=== PATIENT | male | born 1960 | race Caucasian/White ===

== ENCOUNTER 2016-07-28 10:00 | Outpatient (RCR) ==
[2013-02-05 05:18] VITALS: BMI 16.7
--- NOTE | 2016-07-15 13:03 | RS.OPPTEV2 ---
Date of Note: 07/15/16 Visit #: 1 Date of Evaluation: 07/15/16 Payer Source: MEDICARE Date of Onset/Injury/Change in Status: 12/31/15 Surgery Performed?: No Treatment Diagnosis: Low back and leg pain History of Condition/Mechanism of Injury:: Back pain and BLE pain R>L for ~ 6 wks. Pain is the majority of the time but intensity varies. Prior Level of Function.....Patient was independent with: ADL's, Self Care, Work /Vocation, Caregiving, Ambulation/Mobility, Community Integration/Access Functional Limitations: Self Care, ADL's, Reaching, Pushing, Pulling, Lifting, Carrying, Sitting, Standing, Bending, Squatting, Ambulation, Community Access/ Integration Treatment Side (optional): Bilateral Medical History Medical History: Arthritis, Other Medical History Comments:: HIV Surgical History: Other Surgical History Comments:: 2 stent one in each leg, hernia repair Smoking Status: Former smoker Hx Home Medications: hydrocodone prm Pain Assessment - Pain Description Pain Location: back and BLE. RiLE into calf and LLE above the knee. Pain Description: Crushing Current Pain Intensity: 4-5/10 Worst Pain Intensity: 9-10/10 Functional Outcome Measure Oswestry LBP: 24 (50% disability) - G Codes & Severity Modifier G Codes & Modifier: Carrying, Moving & Handling Objects. Eval - CK. Goal - CJ Source of G Code score: Oswestry LBP Scale Observation - Observation Inspection: Patient is very thin with no signs of scoliosis visible. Gait - Gait Pattern General Gait Pattern Observation: No Deviations/Normal General Range of Motion: Right hamstring length -55 degrees, left -35 degrees Muscle Strength: RLE strength is 4+/5 and LLE 4/5 with pain in the lower back with all testing. - ROM Lumbar Flexion: Hand reach to Mid-Thighs Sidebending to Left: Reach to Lateral Joint Line Sidebending to Right: Reach to Lateral Joint Line Lumbar Spine ROM Limitations: Pain - Strength Trunk Rotation: 3+ Fair+ - Special Tests SLR Test: Positive Right Seated Dural Stretch Test: Positive Right SI Joint Compression: Negative Comments: Patient had relief of pain with manual traction and SI joint comopression. Palpation Palpation Findings: None/Normal Sensation - Sensation Sensation Description: [place] (Bilateral feet) Interventions - Exercise/Activities/Manual Therapy Exercises/Activities: Pt was assisted with LTR, KTC and hamstring stretching which was poorly tolerated due to neurotension signs. Manual Therapy: NA - Charges Total Direct Minutes: 15 Total Treatment Time: 60 Procedures billed for this date of service:: PT Eval (Medium) ther ex Assessment Assessment: Severe LBP and BLE pain with decreased lumbar ROM, decrease core strength and decreased hamstring length. Patient Education: Education of diagnosis, Body/Joint mechanics, Activity Modification, Education of Plan of Care Rehab Potential: Good Short Term Goals Goal #1: Patient is independent in basic HEP. Goal to be met by: 07/25/16 Goal #2: Eliminate pain below the right knee. Goal to be met by: 07/25/16 Goal #3: Pain rating 4-5/10 at worst. Goal to be met by: 07/25/16 Goal #4: Bilateral hamstring stretches are tolerated w/o increased LBP. Goal to be met by: 07/25/16 Halfway Goals Goal #1: Eliminate radicular pain in BLEs. Goal to be met by: 08/08/16 Goal #2: Lumbar ROM WFLs w/o increased pain. Goal to be met by: 08/08/16 Goal #3: Oswestry LBP Score 15/50 Goal to be met by: 08/08/16 Goal #4: Independent with proper body mechanics to maintain DC status Goal to be met by: 08/08/16 Plan - Treatment to be Provided Procedures: Therapeutic Exercises, Therapeutic Activity, Manual Therapy, Patient Education Modalities: Electrical Stimulation, Ultrasound/Phonophoresis, Class IV Laser, Cryotherapy, Hot Packs, Mechanical Traction - Treatment Plan Frequency: 3 X week Duration: 4 weeks ORDER # VISITS AND/OR THROUGH DATE: 08/08/2016 - Treatment Code (1) Lumbar radiculitis Comments: M54.16
--- NOTE | 2016-07-18 16:16 | RS.OPPTDN ---
Subjective Date of Note: 07/18/16 Visit #: 2 Date of Evaluation: 07/15/16 Payer Source: MEDICARE Treatment Diagnosis: Low back and leg pain Current Subjective/complaints:: Patient says he is having some soreness to the mid back. States he did not have this before. He is motivated to decrease his back pain in any way as he is trying to get outside yard/garden work initiated. Pain Assessment - Pain Description Pain Location: back and BLE. RiLE into calf and LLE above the knee. Pain Description: Crushing Current Pain Intensity: 4-5/10 - Treatment Modality: Ultrasound Parameters/Method Applied: continuous @ 1.5 w/cm2 x 10 mins bilateral lumbar paraspinals Patient Position: Left Sidelying - Heat/Cryotherapy Treatment: Hot Pack Interventions - Exercise/Activities/Manual Therapy Exercises/Activities: Patient receives passive stretching (gently) for SKTC, HS , and LTR bilaterally. He begins pillow squeezes 2x10. Began education of diagnosis, postural mechanics, and explanation of therex/modality performed today. Total minutes of Exercise: 13 Manual Therapy: NA - Charges Total Direct Minutes: 23 Total Treatment Time: 38 Procedures billed for this date of service:: hp, u/s, ex Assessment: Patient presented with moderate LBP with soreness described at the mid back following evaluation. After session today, he expressed improved back pain and eager to receive further therapy to reduce LBP. Gentle exercise ignacio fairly well. This should improve with consistent treatment. Patient Education: Education of diagnosis, Body/Joint mechanics, Home Exercise Program, Home Safety, Activity Modification, Education of Plan of Care Short Term Goals Goal #1: Patient is independent in basic HEP. Goal to be met by: 07/25/16 Goal #2: Eliminate pain below the right knee. Goal to be met by: 07/25/16 Goal #3: Pain rating 4-5/10 at worst. Goal to be met by: 07/25/16 Goal #4: Bilateral hamstring stretches are tolerated w/o increased LBP. Goal to be met by: 07/25/16 Half-Way Goals Goal #1: Eliminate radicular pain in BLEs. Goal to be met by: 08/08/16 Goal #2: Lumbar ROM WFLs w/o increased pain. Goal to be met by: 08/08/16 Goal #3: Oswestry LBP Score 15/50 Goal to be met by: 08/08/16 Goal #4: Independent with proper body mechanics to maintain DC status Goal to be met by: 08/08/16 Plan PLAN OF CARE EXPIRES ON:: 08/08/16 ORDER # VISITS AND/OR THROUGH DATE: 08/08/2016 PLAN: Continue Plan of Care
--- NOTE | 2016-07-21 13:53 | RS.OPPTDN ---
Subjective Date of Note: 07/21/16 Visit #: 3 Date of Evaluation: 07/15/16 Payer Source: MEDICARE Treatment Diagnosis: Low back and leg pain Current Subjective/complaints:: Patient says treatment helped temporarily, but then started hurting more a day later. He says heat always helps and relies on that and pain meds daily. Pain Assessment - Pain Description Pain Location: back and BLE. RiLE into calf and LLE above the knee. Pain Description: Crushing Current Pain Intensity: 4-5/10 - Treatment Modality: Ultrasound Parameters/Method Applied: continuous @ 1.5 w/cm2 x 12 mins to bilateral lumbar paraspinals Patient Position: Left Sidelying - Heat/Cryotherapy Treatment: Hot Pack (R LB and SI in sidelying x 15 mins) Interventions - Exercise/Activities/Manual Therapy Exercises/Activities: Patient receives passive stretching (gently) for SKTC, HS , and LTR bilaterally. He continues with pillow squeezes 2x10. Isometric hip abd in hooklying x 10. Attempted isometric hip flexion and patient began to have coccyx pain. Total minutes of Exercise: 13 Manual Therapy: NA - Charges Total Direct Minutes: 25 Total Treatment Time: 40 Procedures billed for this date of service:: hp, u/s, ex Assessment: Patient has temporary relief so far with modalities. He has some difficulty ignacio gentle stretches due to small frame and bony prominences coming in contact with bed. May further continue therex as able. Patient Education: Education of diagnosis, Body/Joint mechanics, Home Exercise Program, Home Safety, Activity Modification, Education of Plan of Care Short Term Goals Goal #1: Patient is independent in basic HEP. Goal to be met by: 07/25/16 Goal #2: Eliminate pain below the right knee. Goal to be met by: 07/25/16 Goal #3: Pain rating 4-5/10 at worst. Goal to be met by: 07/25/16 Goal #4: Bilateral hamstring stretches are tolerated w/o increased LBP. Goal to be met by: 07/25/16 Senior Care Goals Goal #1: Eliminate radicular pain in BLEs. Goal to be met by: 08/08/16 Goal #2: Lumbar ROM WFLs w/o increased pain. Goal to be met by: 08/08/16 Goal #3: Oswestry LBP Score 15/50 Goal to be met by: 08/08/16 Goal #4: Independent with proper body mechanics to maintain DC status Goal to be met by: 08/08/16 Plan PLAN OF CARE EXPIRES ON:: 08/08/16 ORDER # VISITS AND/OR THROUGH DATE: 08/08/2016 PLAN: Continue Plan of Care
--- NOTE | 2016-07-23 15:16 | RS.OPPTDN ---
Subjective Date of Note: 07/23/16 Visit #: 4 Date of Evaluation: 07/15/16 Payer Source: MEDICARE Treatment Diagnosis: Low back and leg pain Current Subjective/complaints:: Patient says therapy is helping his back pain. He says he has soreness with changing positions in bed. Pain Assessment - Pain Description Pain Location: back and BLE. RiLE into calf and LLE above the knee. Pain Description: Crushing Current Pain Intensity: 3-4/10 - Treatment Modality: Ultrasound Parameters/Method Applied: continuous @ 1.5 w/cm2 x 12 mins to bilateral lumbar paraspinals (R more than L) Patient Position: Left Sidelying - Heat/Cryotherapy Treatment: Hot Pack (bilateral low back and R SI in sidelying x 20 mins) Interventions - Exercise/Activities/Manual Therapy Exercises/Activities: Patient receives passive stretching (gently) for SKTC, HS , and LTR bilaterally. He continues with pillow squeezes 2x10. Isometric hip abd in hooklying x 10. Alternate LE lift in hooklying x 10. Total minutes of Exercise: 15 Manual Therapy: NA - Charges Total Direct Minutes: 27 Total Treatment Time: 47 Procedures billed for this date of service:: hp, u/s, ex Assessment: Patient responding to treatment slowly as he verbalizes less pain. Still has difficulty ignacio progressed trunk stability. Patient Education: Education of diagnosis, Body/Joint mechanics, Home Exercise Program, Home Safety, Activity Modification, Education of Plan of Care Patient demonstrates compliance with HEP?: Yes Short Term Goals Goal #1: Patient is independent in basic HEP. Goal to be met by: 07/25/16 Goal #2: Eliminate pain below the right knee. Goal to be met by: 07/25/16 Goal #3: Pain rating 4-5/10 at worst. Goal to be met by: 07/25/16 Goal #4: Bilateral hamstring stretches are tolerated w/o increased LBP. Goal to be met by: 07/25/16 Senior Care Goals Goal #1: Eliminate radicular pain in BLEs. Goal to be met by: 08/08/16 Goal #2: Lumbar ROM WFLs w/o increased pain. Goal to be met by: 08/08/16 Goal #3: Oswestry LBP Score 15/50 Goal to be met by: 08/08/16 Goal #4: Independent with proper body mechanics to maintain DC status Goal to be met by: 08/08/16 Plan PLAN OF CARE EXPIRES ON:: 08/08/16 ORDER # VISITS AND/OR THROUGH DATE: 08/08/2016 PLAN: Continue Plan of Care
--- NOTE | 2016-07-28 12:03 | RS.OPPTDN ---
Subjective Date of Note: 07/28/16 Visit #: 5 Date of Evaluation: 07/15/16 Payer Source: MEDICARE Treatment Diagnosis: Low back and leg pain Current Subjective/complaints:: Patient c/o not feeling good this morning. Says his stomach is upset, but wishes to continue because his back is hurting. Pain Assessment - Pain Description Pain Location: back and BLE. RiLE into calf and LLE above the knee. Pain Description: Crushing Current Pain Intensity: does not rate, generally not feeling well. - Treatment Modality: Ultrasound Parameters/Method Applied: continuous @ 1.5 w/cm2 x 10 mins to bilateral lumbar paraspinals Patient Position: Left Sidelying - Heat/Cryotherapy Treatment: Hot Pack (20 mins over the R low back and hip sidelying) Interventions - Exercise/Activities/Manual Therapy Exercises/Activities: Patient performs trunk stability and avoided stretching today due to c/o stomach upset. He performs pillow squeezes, isometric hip flexion/abd, pelvic tilts and SLR (x 5). All others 2/10. Total minutes of Exercise: 16 Manual Therapy: NA - Charges Total Direct Minutes: 26 Total Treatment Time: 46 Procedures billed for this date of service:: hp, u/s, ex Assessment: Patient not feeling well today. Abbreviated session and avoided stretching. Patient Education: Education of diagnosis, Body/Joint mechanics, Home Exercise Program, Home Safety, Activity Modification, Education of Plan of Care Short Term Goals Goal #1: Patient is independent in basic HEP. Goal to be met by: 07/25/16 Goal #2: Eliminate pain below the right knee. Goal to be met by: 07/25/16 Goal #3: Pain rating 4-5/10 at worst. Goal to be met by: 07/25/16 Goal #4: Bilateral hamstring stretches are tolerated w/o increased LBP. Goal to be met by: 07/25/16 Snf Goals Goal #1: Eliminate radicular pain in BLEs. Goal to be met by: 08/08/16 Goal #2: Lumbar ROM WFLs w/o increased pain. Goal to be met by: 08/08/16 Goal #3: Oswestry LBP Score 15/50 Goal to be met by: 08/08/16 Goal #4: Independent with proper body mechanics to maintain DC status Goal to be met by: 08/08/16 Plan PLAN OF CARE EXPIRES ON:: 08/08/16 ORDER # VISITS AND/OR THROUGH DATE: 08/08/2016 PLAN: Progress Exercises
== END 2016-07-29 ==
PROVIDERS: ATTEND Internal Medicine Infectious Disease
DX: M54.5 Low back pain (principal)

== ENCOUNTER 2016-08-08 10:00 | Outpatient (RCR) ==
[2013-02-05 05:18] VITALS: BMI 16.7
--- NOTE | 2016-07-30 10:33 | RS.OPPTDN ---
Subjective Date of Note: 07/30/16 Visit #: 6 Date of Evaluation: 07/15/16 Payer Source: MEDICARE Treatment Diagnosis: Low back and leg pain Current Subjective/complaints:: Patient says his back pain has been better. Reports exercises are easier to ignacio, but stretching sometimes bothers him ( piriformis). Pain Assessment - Pain Description Pain Location: back and BLE. RiLE into calf and LLE above the knee. Current Pain Intensity: Feeling better, improvement from last session. - Treatment Modality: Ultrasound Parameters/Method Applied: 1.5 w/cm2 x 10 mins to R lumbar paraspinals/SI Patient Position: Left Sidelying - Heat/Cryotherapy Treatment: Hot Pack ( over the R LB and SI in sidelying x 20 mins) Interventions - Exercise/Activities/Manual Therapy Exercises/Activities: Patient restarts stretching (passively) of SKTC, Piriformis, Fig 4, Trunk rotation, and HS bilaterally. He performs trunk stability of: pillow squeezes, isometric hip flexion/abd, pelvic tilts, bridging and SLR (x 5). All others /10. Total minutes of Exercise: 17 Manual Therapy: NA - Charges Total Direct Minutes: 27 Total Treatment Time: 47 Procedures billed for this date of service:: hp, u/s, ex Assessment: Patient experiencing back pain reduction this date. Patient ignacio all therex well with only slight soreness with R piriformis stretching. Patient Education: Education of diagnosis, Body/Joint mechanics, Home Exercise Program, Home Safety, Activity Modification, Education of Plan of Care Patient demonstrates compliance with HEP?: Yes Short Term Goals Goal #1: Patient is independent in basic HEP. Goal to be met by: 07/25/16 Progress towards Goal:: Progressing Goal #2: Eliminate pain below the right knee. Goal to be met by: 07/25/16 Goal #3: Pain rating 4-5/10 at worst. Goal to be met by: 07/25/16 Goal #4: Bilateral hamstring stretches are tolerated w/o increased LBP. Goal to be met by: 07/25/16 Agency Operator Goals Goal #1: Eliminate radicular pain in BLEs. Goal to be met by: 08/08/16 Goal #2: Lumbar ROM WFLs w/o increased pain. Goal to be met by: 08/08/16 Goal #3: Oswestry LBP Score 15/50 Goal to be met by: 08/08/16 Goal #4: Independent with proper body mechanics to maintain DC status Goal to be met by: 08/08/16 Plan PLAN OF CARE EXPIRES ON:: 08/08/16 ORDER # VISITS AND/OR THROUGH DATE: 08/08/2016 PLAN: Progress Exercises
--- NOTE | 2016-08-01 09:53 | RS.OPPTDN ---
Subjective Date of Note: 08/01/16 Visit #: 7 Date of Evaluation: 07/15/16 Payer Source: MEDICARE Treatment Diagnosis: Low back and leg pain Current Subjective/complaints:: Patient says he lifted a flower pot last night and felt a pull in his back. Rates pain /. Pain Assessment - Pain Description Pain Location: both sides of back today related to picking up heavy flower pot Current Pain Intensity: elevated today 01/08 - Treatment Modality: Ultrasound Parameters/Method Applied: continuous 1.5 w/cm2 x12 mins to B lumbar paraspinals in sidelying Patient Position: Prone Comments: and L sidelying - Heat/Cryotherapy Treatment: Hot Pack ( low back and in sidelying x 20 mins) Interventions - Exercise/Activities/Manual Therapy Exercises/Activities: Patient restarts stretching (passively and gently) of SKTC , Piriformis, Fig 4, Trunk rotation, and HS bilaterally. He performs trunk stability of: pillow squeezes only due to flare up of pain. Provided Biofreeze for the weekend. Total minutes of Exercise: 10 Manual Therapy: NA - Charges Total Direct Minutes: 22 Total Treatment Time: 42 Procedures billed for this date of service:: hp, u/s, ex Assessment: Patient has elevated pain since last night related to picking up flower pot. Only light stretching performed. He remains tender to u/s head bilaterally. Limited R ER/HS with stretching. Patient Education: Education of diagnosis, Body/Joint mechanics, Home Exercise Program, Home Safety, Activity Modification, Education of Plan of Care Short Term Goals Goal #1: Patient is independent in basic HEP. Goal to be met by: 07/25/16 Progress towards Goal:: Progressing Goal #2: Eliminate pain below the right knee. Goal to be met by: 07/25/16 Progress towards Goal:: Progressing Goal #3: Pain rating 4-5/10 at worst. Goal to be met by: 07/25/16 Goal #4: Bilateral hamstring stretches are tolerated w/o increased LBP. Goal to be met by: 07/25/16 Progress towards Goal:: Progressing Underground Conduit Installer Goals Goal #1: Eliminate radicular pain in BLEs. Goal to be met by: 08/08/16 Goal #2: Lumbar ROM WFLs w/o increased pain. Goal to be met by: 08/08/16 Goal #3: Oswestry LBP Score 15/50 Goal to be met by: 08/08/16 Goal #4: Independent with proper body mechanics to maintain DC status Goal to be met by: 08/08/16 Plan PLAN OF CARE EXPIRES ON:: 08/08/16 ORDER # VISITS AND/OR THROUGH DATE: 08/08/2016 PLAN: Continue Plan of Care
--- NOTE | 2016-08-04 11:39 | RS.OPPTDN ---
Subjective Date of Note: 08/04/16 Visit #: 8 Date of Evaluation: 07/15/16 Payer Source: MEDICARE Treatment Diagnosis: Low back and leg pain Current Subjective/complaints:: Patient says that his pain has gotten better since last week. He says he is now at his "normal" pain level. Rates 11/08. Says pain is still going into both legs without change. Pain Assessment - Pain Description Pain Location: R hip Current Pain Intensity: decreased today to 11/08 - Treatment Modality: Ultrasound Parameters/Method Applied: continuous @ 1.5 w/cm2 x 10 mins bilateral lumbar paraspinals and into the R SI Patient Position: Left Sidelying - Heat/Cryotherapy Treatment: Hot Pack (over the low back and R SI in sidelying x 20) Interventions - Exercise/Activities/Manual Therapy Exercises/Activities: Patient receives gentle passive stretching of SKTC, HS, Piriformis, short range lower trunk rotation. Bilaterally x 3. He performs: pillow squeezes, isometric hip abd in hooklying. Total minutes of Exercise: 15 Manual Therapy: NA - Charges Total Direct Minutes: 25 Total Treatment Time: 45 Procedures billed for this date of service:: hp, u/s, ex Assessment: Patient presents with less pain today compared to last week, but continues with mod pain to the R hip and bilateral LE pain. Patient Education: Education of diagnosis, Body/Joint mechanics, Home Exercise Program, Home Safety, Activity Modification, Education of Plan of Care Patient demonstrates compliance with HEP?: Yes Short Term Goals Goal #1: Patient is independent in basic HEP. Goal to be met by: 07/25/16 Progress towards Goal:: Progressing Goal #2: Eliminate pain below the right knee. Goal to be met by: 07/25/16 Progress towards Goal:: Progressing Goal #3: Pain rating 4-5/10 at worst. Goal to be met by: 07/25/16 Goal #4: Bilateral hamstring stretches are tolerated w/o increased LBP. Goal to be met by: 07/25/16 Progress towards Goal:: Progressing Horse Rancher Goals Goal #1: Eliminate radicular pain in BLEs. Goal to be met by: 08/08/16 Progress towards goal: No Change Goal #2: Lumbar ROM WFLs w/o increased pain. Goal to be met by: 08/08/16 Goal #3: Oswestry LBP Score 15/50 Goal to be met by: 08/08/16 Goal #4: Independent with proper body mechanics to maintain DC status Goal to be met by: 08/08/16 Plan PLAN OF CARE EXPIRES ON:: 08/08/16 ORDER # VISITS AND/OR THROUGH DATE: 08/08/2016 PLAN: Continue Plan of Care
--- NOTE | 2016-08-06 11:39 | RS.OPPTDN ---
Subjective Date of Note: 08/06/16 Visit #: 9 Date of Evaluation: 07/15/16 Payer Source: MEDICARE Treatment Diagnosis: Low back and leg pain Current Subjective/complaints:: Patient says he is hurting worse today. He says he hurts all over. He says he has to clean up his yard today and will have help, but still dreads it. Pain Assessment - Pain Description Pain Location: both sides of the low back and R hip Current Pain Intensity: elevated today, "hurting everywhere" - Treatment Modality: Ultrasound Parameters/Method Applied: 1.5 w/cm2 continuous @ 3.3 mHz x 12 mins to bilateral lumbar paraspinals, more concentration at the R side Patient Position: Left Sidelying - Heat/Cryotherapy Treatment: Hot Pack (15 mins to the R low back and SI in sidelying) Interventions - Exercise/Activities/Manual Therapy Exercises/Activities: Patient receives gentle passive stretching of SKTC, HS, Piriformis, short range lower trunk rotation. Bilaterally x 3. No further therex due to patient's increased reports of pain. Total minutes of Exercise: 10 Manual Therapy: NA - Charges Total Direct Minutes: 22 Total Treatment Time: 37 Procedures billed for this date of service:: hp, u/s, ex Assessment: Patient's pain elevated today to both sides of his back and hips. He has been having mild, temporary relief. He was unable to ignacio gentle stretching to the R LE. Patient Education: Education of diagnosis, Body/Joint mechanics, Home Exercise Program, Home Safety, Activity Modification, Education of Plan of Care Patient demonstrates compliance with HEP?: Yes Short Term Goals Goal #1: Patient is independent in basic HEP. Goal to be met by: 07/25/16 Progress towards Goal:: Progressing Goal #2: Eliminate pain below the right knee. Goal to be met by: 07/25/16 Progress towards Goal:: No Change Goal #3: Pain rating 4-5/10 at worst. Goal to be met by: 07/25/16 Progress towards Goal:: Regressing Goal #4: Bilateral hamstring stretches are tolerated w/o increased LBP. Goal to be met by: 07/25/16 Progress towards Goal:: Progressing Hand Salter Goals Goal #1: Eliminate radicular pain in BLEs. Goal to be met by: 08/08/16 Progress towards goal: No Change Goal #2: Lumbar ROM WFLs w/o increased pain. Goal to be met by: 08/08/16 Progress towards goal: No Change Goal #3: Oswestry LBP Score 15/50 Goal to be met by: 08/08/16 Progress towards goal: No Change Goal #4: Independent with proper body mechanics to maintain DC status Goal to be met by: 08/08/16 Plan PLAN OF CARE EXPIRES ON:: 08/08/16 ORDER # VISITS AND/OR THROUGH DATE: 08/08/2016 PLAN: Plan for Discharge (Patient has one session remaining. Progress therex as able and advance HEP.) Comments:: Continue last session, then discharge
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
--- NOTE | 2016-08-12 11:37 | RS.OPPTDC ---
Date of Discharge: 08/08/16 Date of Evaluation: 07/15/16 Number of Visits: 10 Treatment Diagnosis: Low back and leg pain Current Complaints/Gains: Pt reports he is not benefiting from PT. His pain continues to be mod-severe in nature and radiating into the BLEs as on initial evaluation. Pain Assessment - Pain Description Pain Location: both sides of the low back and R hip Current Pain Intensity: elevated today, "hurting everywhere" Functional Outcome Measure Oswestry LBP: 24 - G Codes & Severity Modifier G Codes & Modifier: Carry & maintaining body position: Goal: CJ. D/C Status: CK Source of G Code score: Oswestry LBP scale Interventions - Exercise/Activities/Manual Therapy Exercises/Activities: na Manual Therapy: NA - Charges Total Direct Minutes: na Total Treatment Time: na Procedures billed for this date of service:: na Assessment Assessment: Patient continues to have pain unchanged by PT intervention. Short Term Goals Goal #1: Patient is independent in basic HEP. Goal to be met by: 07/25/16 Progress towards Goal:: Progressing Goal #2: Eliminate pain below the right knee. Goal to be met by: 07/25/16 Progress towards Goal:: No Change Goal #3: Pain rating 4-5/10 at worst. Goal to be met by: 07/25/16 Progress towards Goal:: Regressing Goal #4: Bilateral hamstring stretches are tolerated w/o increased LBP. 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 Goal to be met by: 08/08/16 Progress towards goal: No Change Goal #2: Lumbar ROM WFLs w/o increased pain. Goal to be met by: 08/08/16 Progress towards goal: No Change Goal #3: Oswestry LBP Score 15/50 Goal to be met by: 08/08/16 Progress towards goal: No Change Goal #4: Independent with proper body mechanics to maintain DC status Goal to be met by: 08/08/16 Plan Reason for Discharge:: Lack of Progress
== END 2016-08-29 ==
PROVIDERS: ATTEND Internal Medicine Infectious Disease
DX: M54.5 Low back pain (principal)

== ENCOUNTER 2017-06-09 11:37 | Emergency (ER) ==
[2017-06-09 11:40] VITALS: BP 146/74; TEMP 99.3; BMI 17.0
--- NOTE | 2017-06-09 12:29 | ED.PDOC ---
General ED Provider: Dr. BEKAH AHUJA Chief Complaint: Chest Pain Stated Complaint: Sudden onset lt sided chest pain Lt Posterior >Anterior; Denies Dyspnea, nausea or vomiting Time Seen by Physician: 12:30 Mode of Arrival: Walk-In Information Source: Patient Primary Care Provider: CARMENCITA FLOOD Nursing and Triage Documentation Reviewed and Agree: Yes Reviewed sepsis parameters & appropriate labs ordered?: Yes System Inflammatory Response Syndrome: Not Applicable Sepsis Protocol: For patient's 13 years and over: Temp is 96.8 and below OR 101 and greater Pulse >90 BPM Resp >20/minute Acutely Altered Mental Status Are patient's symptoms suggestive of a new infection, such as: -Pneumonia -Skin, Soft Tissue -Endocarditis -UTI -Bone, Joint Infection -Implantable Device -Acute Abdominal Infection -Wound Infection -Meningitis -Blood Stream Catheter Infection -Unknown System Inflammatory Response Syndrome: Not Applicable Cardiovascular Complaint Exam - Chest Pain Complaint/Exam Onset: Sudden Duration: 2 hrs Symptoms Are: Still present Timing: Constant Initial Severity: Moderate Current Severity: Moderate Location: Reports: Left anterior, Other (Lt Posterior) Pain Radiates: Reports: Back, Left shoulder Character: Reports: Sharp, Stabbing Aggravating: Reports: Movement Alleviating: Reports: Rest Associated Signs and Symptoms: Denies: Diaphoresis, Nausea, Vomiting, Fever, Palpitations, Hemoptysis, Back pain, Abdominal pain, Calf pain, Calf swelling Related History: Denies: Similar episode Review of Systems - Review Of Systems Constitutional: Reports: No symptoms Eyes: Reports: No symptoms Ears, Nose, Mouth, Throat: Reports: No symptoms Respiratory: Reports: No symptoms Cardiac: Reports: Chest pain. Denies: Lightheadedness, Palpitations, Syncope GI: Reports: No symptoms : Reports: No symptoms Musculoskeletal: Reports: Back pain, Muscle stiffness Skin: Reports: No symptoms Neurological: Reports: No symptoms Endocrine: Reports: No symptoms Hematologic/Lymphatic: Reports: Other (Pos HIV ) All Other Systems: Reviewed and Negative Past Medical History - Past Medical History Previously Healthy: No Endocrine: Reports: None Cardiovascular: Reports: None Respiratory: Reports: COPD Hematological: Reports: HIV Gastrointestinal: Reports: None Genitourinary: Reports: None Neuro/Psych: Reports: None Musculoskeletal: Reports: None Cancer: Reports: None - Surgical History General Surgical History: Reports: None - Family History Family History: Reports: None - Social History Smoking Status: Former smoker Hx Substance Use: Yes (MARIJUANA) Alcohol Screening: None Lives: With family Physical Exam - Physical Exam Appearance: Thin Ill-appearing: Mild Pain Distress: Mild (Lt upper periscapular region) Eyes: DESI, EOMI, Conjunctiva clear, Right pupil size ENT: Ears normal, Nose normal, Oropharynx normal Neck: Nonsupple Respiratory: Airway patent, Breath sounds clear, Breath sounds equal Cardiovascular: RRR, Pulses normal, No rub, No murmur GI/: Soft, Nontender, No masses, Bowel sounds normal Musculoskeletal: Normal strength, ROM intact, No edema, No calf tenderness Skin: Warm, Dry, Normal color Neurological: Sensation intact, Motor intact, Reflexes intact, Cranial nerves intact, Alert, Oriented Psychiatric: Affect appropriate Critical Care Note - Critical Care Note Total Time (mins): 0 Course - Course Hematology/Chemistry: 06/09/17 12:40 06/09/17 12:40 Orders, Labs, Meds: Lab Review 06/09/17 06/09/17 12:40 12:40 WBC 5.70 RBC 4.15 L Hgb 13.9 L Hct 39.2 L MCV 94.5 H MCH 33.5 H MCHC 35.5 H RDW Coeff of Genevieve 12.0 Plt Count 149 Immature Gran % (Auto) 0.4 Neut % (Auto) 61.8 Lymph % (Auto) 29.6 Gibson % (Auto) 6.1 Eos % (Auto) 1.4 Baso % (Auto) 0.7 Immature Gran # (Auto) 0.0 Neut # 3.5 Lymph # 1.7 Gibson # 0.4 Eos # 0.1 Baso # 0.0 Sodium 141 Potassium 3.9 Chloride 105 Carbon Dioxide 27 Anion Gap 12.9 BUN 10 Creatinine 1.14 H Estimated GFR (MDRD) 66.00 BUN/Creatinine Ratio 8.77 Glucose 133 H Calcium 9.3 Total Bilirubin 0.3 AST 16 ALT 19 Alkaline Phosphatase 46 L Total Creatine Kinase 53 Troponin I < 0.0100 Total Protein 7.1 Albumin 3.9 Globulin 3.2 Albumin/Globulin Ratio 1.22 Orders Category Date Time Status EKG-(ED ONLY) Stat CARDIO 06/09/17 12:19 Completed CBC W/ AUTO DIFF Stat LAB 06/09/17 12:40 Completed COMPREHENSIVE METABOLIC PANEL Stat LAB 06/09/17 12:40 Completed CREATINE KINASE Stat LAB 06/09/17 12:40 Completed TROPONIN I Stat LAB 06/09/17 12:40 Completed Ketorolac Tromethamine [Toradol] MEDS 06/09/17 13:25 Discontinued 15 mg IVP ONCE STA Lorazepam Inj [Ativan] MEDS 06/09/17 13:26 Discontinued 0.5 mg IVP ONCE STA CHEST, 1V AP ONLY Stat RADS 06/09/17 12:28 Completed Medications Discontinued Medications Generic Name Dose Route Start Last Admin Trade Name Farhana PRN Reason Stop Dose Admin Ketorolac Tromethamine 15 mg 06/09/17 13:25 06/09/17 13:40 Toradol IVP 06/09/17 13:26 15 mg ONCE STA Administration Lorazepam 0.5 mg 06/09/17 13:26 06/09/17 13:41 Ativan IVP 06/09/17 13:27 0.5 mg ONCE STA Administration Vital Signs: Temp Pulse Resp BP Pulse Ox 06/09/17 11:37 99.3 F 90 24 146/74 H 100 WALKER Risk Score WALKER Risk Score: Risk Score Odds of by 30D 0 0.1 (0.1-0.2) 1 0.3 (0.2-0.3) 2 0.4 (0.3-0.5) 3 0.7 (0.6-0.9) 4 1.2 (1.0-1.5) 5 2.2 (1.9-2.6) 6 3.0 (2.5-3.6) 7 4.8 (3.8-6.1) Departure - Departure Time of Disposition: 16:30 Disposition: HOME SELF-CARE Discharge Problem: Acute chest wall pain, Somatic dysfunction of thoracic region, Lesion of right lung Discharge Problem: (Ruled Out): Lesion of left lung Instructions: Thoracic Pain (ED) Condition: Good Pt referred to PMD for follow-up: Yes Additional Instructions: Follow up with PCP for further evaluation of Rt sided lung lesion identified on Chest Xray including obtaing a CT Scan of the chest\ Avoid strenuous activities Take analgesics for pain as needed Apply ice pack alternating with warm moist heat to area of discomfort for 20 min 3 times daily Allergies/Adverse Reactions: Allergies clarithromycin [From Biaxin] Adverse Reaction (Verified 06/09/17 11:40) Home Medications: Ambulatory Orders Acetaminophen [Tylenol] 500 mg PO Q4-6H PRN 02/05/13 Aspirin [Aspirin EC] 81 mg PO DAILY 02/05/13 Atorvastatin Calcium [Lipitor] 10 mg PO BEDTIME 02/05/13 Hydrocodone Bit/Acetaminophen [Lortab 10-500] 1 tab PO TID PRN 02/05/13 Dolutegravir Sodium [Tivicay] 50 mg PO DAILY 06/09/17 Emtricitabine/Tenofov Alafenam [Descovy 200-25 mg Tablet] 1 each PO DAILY Disposition Discussed With: Patient, Family Additional Comments Additional Comments: Area of upper lt thoracic spinal region with focal paraspinous mm tenderness and spasm/pos trigger point = allevaited with Counterstrain Myofacial therapy /OMM
--- NOTE | 2017-06-09 12:58 | DI ---
EXAM: Single view of the chest. History: Chest pain. Comparison: Chest radiograph 02/05/2013 Findings: Heart size is within normal limits. Calcified granulomas seen within the thorax. Biapical lung scarring again noted. 1.4 cm spiculated nodule within the right lung apex. No pleural fluid an d no pneumothorax. No consolidated pneumonia. Impression: Spiculated nodule in the right lung apex. Recommend further evaluation with contrast en hanced chest CT.
[2017-06-09] MEDS ORDERED: TORADOL IVP STA (13:25)
[2017-06-09] MEDS ORDERED: ATIVAN IVP STA (13:26)
== END 2017-06-09 16:49 | disposition home or self-care (01) ==
LOC: ED 11:37
DX: R07.89 Other chest pain (principal); R91.1 Solitary pulmonary nodule; M99.02 Segmental and somatic dysfunction of thoracic region; B20 Human immunodeficiency virus [HIV] disease; R74.8 Abnormal levels of other serum enzymes
CPT/HCPCS: 36415; 80053; 82550; 84484; 85025; 93005; 93010; 96374; 96375; 99283